=== PATIENT | male | born 1985 | race American Indian/Alaskan Native ===

== ENCOUNTER 2021-05-22 12:54 | Emergency (ER) | payer BC ==
[2021-05-22 13:03] VITALS: BP 150/102
--- NOTE | 2021-05-22 13:09 | Emergency Department Report ---
ED General Adult HPI - General Chief complaint: Hyperglycemia Stated complaint: HIGH BS Time Seen by Provider: 05/22/21 13:05 Source: patient Mode of arrival: Ambulatory Limitations: No Limitations - History of Present Illness Initial comments: Chief complaint: My blood sugar was high. I need to be cleared for work. 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 He has a history of juvenile diabetes since age 5. He felt weird. [facility]. Blood sugar was greater than 500. Physician and nurse provided medical care at the [facility]. Received 14 units insulin subcutaneously.. He checked his insulin pump. He realized the site was bad. He needs to go home in order to reinsert the insulin pump. He feels much better after receiving insulin. He denies abdominal pain vomiting headache. He was in his normal state of health this morning. He ate breakfast sandwich and drink apple juice for breakfast this morning. -: Gradual, This morning Severity scale (0 -10): 0 Consistency: now resolved Improves with: medication (Improved with subcutaneous insulin) Associated Symptoms: other (Adams "weird" no other symptoms) - Related Data Allergies Allergy/AdvReac Type Severity Reaction Status Date / Time No Known Allergies Allergy Unverified 05/22/21 13:03 ED Review of Systems ROS: Stated complaint: HIGH BS Other details as noted in HPI Comment: All other systems reviewed and negative Constitutional: denies: chills, fever Respiratory: denies: cough, shortness of breath Gastrointestinal: denies: abdominal pain, nausea, vomiting ED Past Medical Hx - Past Medical History Previous Medical History?: Yes Additional medical history: Insulin-dependent diabetes mellitus since age 5 - Social History Smoking Status: Never Smoker Substance Use Type: None ED Physical Exam - General Limitations: No Limitations General appearance: alert, in no apparent distress, other (Appears well appears healthy) - Head Head exam: Present: atraumatic, normocephalic - Eye Eye exam: Present: normal appearance - ENT ENT exam: Present: mucous membranes moist - Neck Neck exam: Present: normal inspection - Respiratory Respiratory exam: Present: normal lung sounds bilaterally. Absent: respiratory distress - Cardiovascular Cardiovascular Exam: Present: regular rate, normal rhythm. Absent: systolic murmur, diastolic murmur, rubs, gallop - GI/Abdominal GI/Abdominal exam: Present: soft, normal bowel sounds. Absent: distended, ten derness, guarding, rebound - Rectal Rectal exam: Present: deferred - Extremities Exam Extremities exam: Present: normal inspection - Back Exam Back exam: Present: normal inspection - Neurological Exam Neurological exam: Present: alert, oriented X3 - Psychiatric Psychiatric exam: Present: normal affect, normal mood - Skin Skin exam: Present: warm, dry, intact, normal color. Absent: rash ED Course Vital Signs 05/22/21 13:01 Temperature 98.0 F Pulse Rate 97 H Respiratory 16 Rate Blood Pressure 150/102 O2 Sat by Pulse 100 Oximetry ED Medical Decision Making - Medical Decision Making Acute hyperglycemia, patient did not have insulin coverage for his breakfast. Consequently he had elevated blood sugar. After receiving subcutaneous insulin he feels much better. Currently symptom-free. No indication for further work- up. Patient understands return for lightheadedness, vomiting, pain or new symptoms. Accu-Chek 365 in the emergency department. He has not eaten lunch. He notes that his sugar will continue to decline he plans to go directly home reinsert his insulin pump. He will eat lunch. Critical care attestation.: If time is entered above; I have spent that time in minutes in the direct care of this critically ill patient, excluding procedure time. ED Disposition Clinical Impression: Acute hyperglycemia, Insulin dependent diabetes mellitus Disposition: HOME / SELF CARE / HOMELESS Is pt being admited?: No Does the pt Need Aspirin: No Condition: Stable Instructions: Diabetes Mellitus Type 2 in Adults (ED) Additional Instructions: Please return to the ER if you develop any symptoms. Forms: Work/School Release Form(ED)
== END 2021-05-22 13:39 | disposition home or self-care (01) ==
LOC: ED 12:54
DX: E10.65 Type 1 diabetes mellitus with hyperglycemia (principal)
CPT/HCPCS: 82962; 99282